=== PATIENT | male | born 1980 | race Caucasian/White ===

== ENCOUNTER 2023-08-12 14:29 | Emergency (ER) | payer BC, OTHER ==
[2023-08-12 15:07] VITALS: TEMP 97.7; BMI 33.5
[2023-08-12 15:39] LABS: INR 0.96 (0.83-1.09); PROTHROMBIN TIME (PATIENT) 11.1 SEC (9.7-13.0)
[2023-08-12 15:41] LABS: ACTIVATED PTT 29.5 SECONDS (25.2-36.5)
[2023-08-12 15:42] LABS: HEMATOCRIT 45.6 % (35.4-49); HEMOGLOBIN 15.6 G/dL (11.7-16.9); MCH 31.6 pg (25.7-33.7); MCHC 34.2 g/dl (32.0-35.9); MEAN CELL VOLUME 92.5 fl (80-96); MEAN PLT VOLUME 10.1 fl (7.5-11.1); PLATELET COUNT 177.5 10^3/uL (134-434); RBC 4.93 10^6/uL (4.00-5.60); RDW 13.9 % (11.9-15.9); WHITE BLOOD COUNT 6.1 10^3/uL (4.0-10.8)
[2023-08-12 15:44] VITALS: BP 139/87; PULSE 62; RESP 19
[2023-08-12 15:44] LABS: PLATELET ESTIMATE ADEQUATE
[2023-08-12 15:50] LABS: ALBUMIN 4.8 g/dl (3.4-5.0); CALCIUM 9.5 mg/dl (8.5-10.1); CREATININE 1.1 mg/dl (0.6-1.3); POTASSIUM 3.9 mmol/L (3.5-5.1); TOT PROT 7.5 g/dl (6.4-8.2)
== END 2023-08-12 16:42 | disposition home or self-care (01) ==
LOC: FER 14:29
DX: R07.89 Other chest pain (principal); L40.9 Psoriasis, unspecified
CPT/HCPCS: 36415; 71046-TC-FY; 80053; 84484; 85025; 85610; 85730; 93005; 99285-25

== ENCOUNTER 2024-06-20 04:41 | Day surgery (SDC) | payer OTHER ==
[2024-06-15 08:38] VITALS: BMI 32.8
[2024-06-20 11:17] VITALS: TEMP 97.6
[2024-06-20 12:33] VITALS: RESP 19
[2024-06-20 12:34] VITALS: BP 120/81; PULSE 60
== END 2024-06-20 12:30 | disposition home or self-care (01) ==
LOC: JASU-ENDO 04:41
PROVIDERS: ATTEND Internal Medicine Gastroenterology
PROC: 0DB78ZX Excision of Stomach, Pylorus, Via Natural or Artificial Opening Endoscopic, Diagnostic (ICD-10-PCS; 2024-06-20)
PROC: 0DB68ZX Excision of Stomach, Via Natural or Artificial Opening Endoscopic, Diagnostic (ICD-10-PCS; 2024-06-20)
PROC: 0DB28ZX Excision of Middle Esophagus, Via Natural or Artificial Opening Endoscopic, Diagnostic (ICD-10-PCS; 2024-06-20)
PROC: 0DB38ZX Excision of Lower Esophagus, Via Natural or Artificial Opening Endoscopic, Diagnostic (ICD-10-PCS; 2024-06-20)
PROC: 0DB98ZX Excision of Duodenum, Via Natural or Artificial Opening Endoscopic, Diagnostic (ICD-10-PCS; principal; 2024-06-20 10:00)
DX: K29.50 Unspecified chronic gastritis without bleeding (principal); K44.9 Diaphragmatic hernia without obstruction or gangrene; B96.81 Helicobacter pylori [H. pylori] as the cause of diseases classified elsewhere
CPT/HCPCS: 88305-TC; 88341-TC; 88342-TC